=== PATIENT | male | born 1965 | race Hispanic/Latino ===

== ENCOUNTER 2019-02-13 08:50 | Emergency (ER) | payer OTHER ==
[~2019-02-13] VITALS: Ht 157.5 cm; Wt 74.8 kg
--- OUTSIDE RECORDS SUMMARY | 2019-02-13 08:54 | XMS REPORT | Summary of Care ---
Author Author [facility] Organization [facility] Address Unknown Phone Unavailable Encounter YUDITH Garrido(MARLO) [id number] Date(s): 09/17/16 - 09/17/16 [facility] [address] [place] [address]- Discharge Disposition: Home or Self Care Attending Physician: Ermias Charles MD Referring Physician: Ermias Charles MD Vital Signs 1 2 3 Most recent to oldest [Reference Range]: 160.02 cm (09/01/16 4:53 PM) Height 97.5 DegF (09/01/16 4:58 PM) Temperature Oral [96.4-99.1 DegF] 103/81 mmHg (09/17/16 2:15 PM) 104/58 mmHg (09/17/16 2:00 PM) 106/67 mmHg (09/17/16 1:45 PM) Blood Pressure [90-140/60-90 mmHg] 8 BRMIN *LOW* (09/17/16 2:00 PM) 12 BRMIN *LOW* (09/17/16 1:45 PM) 10 BRMIN *LOW* (09/17/16 1:30 PM) Respiratory Rate [14-20 BRMIN] 58 bpm *LOW* (09/01/16 4:58 PM) Peripheral Pulse Rate [60-100 bpm] 70.909 kg (09/01/16 4:53 PM) Weight 27.69 m2 (09/01/16 4:53 PM) Body Mass Index Problem List Condition Effective Dates Status Health Status Informant Acinetobacter(Confir Active med)1 BPH (benign Active prostatic hyperplasia)(Confirm ed) 1Problem added by Discern Expert. Allergies, Adverse Reactions, Alerts Substance Reaction Severity Status NKDA Active Medications acetaminophen (ANES) Route: IV, Drug form: INJ, ONCE, Stop date: 09/17/16 13:19:00 CDT Start Date: 09/17/16 Stop Date: 09/17/16 Status: Completed ciprofloxacin (ANES) Route: IV, Drug form: INJ, ONCE, Stop date: 09/17/16 12:41:00 CDT Start Date: 09/17/16 Stop Date: 09/17/16 Status: Completed fentaNYL (ANES) Route: IV, Drug form: INJ, ONCE, Stop date: 09/17/16 12:41:00 CDT Start Date: 09/17/16 Stop Date: 09/17/16 Status: Completed furosemide (ANES) Route: IV, Drug form: INJ, ONCE, Stop date: 09/17/16 13:19:00 CDT Start Date: 09/17/16 Stop Date: 09/17/16 Status: Completed Lactated Ringers Injection IV 1000 mL 1,000 mL, Rate: 25 ml/hr, Infuse over: 40 hr, Route: IV, Dosing Weight 70.909 kg , Total Volume: 1,000, Start date: 09/17/16 11:43:00 CDT, Duration: 30 day, Stop date: 10/17/16 11:42:00 PROGRAM MANAGER SLP Start Date: 09/17/16 Stop Date: 09/17/16 Status: Discontinued lidocaine (ANES) Route: IV, Drug form: INJ, ONCE, Stop date: 09/17/16 12:41:00 CDT Start Date: 09/17/16 Stop Date: 09/17/16 Status: Completed LR 1000 mL INJ (ANES) Route: IV, Total Volume: 1,000, Start date: 09/17/16 12:08:00 CDT, Stop date: 13:08:00 CDT Start Date: 09/17/16 Stop Date: 09/17/16 Status: Completed midazolam (ANES) Route: IV, Drug form: SOLN, ONCE, Stop date: 09/17/16 12:41:00 CDT Start Date: 09/17/16 Stop Date: 09/17/16 Status: Completed ondansetron (ANES) Route: IV, Drug form: INJ, ONCE, Stop date: 09/17/16 12:46:00 CDT Start Date: 09/17/16 Stop Date: 09/17/16 Status: Completed oxybutynin 5 mg oral tablet 5 mg=1 tab, PO, TID, PRN Bladder Spasm, # 30 tab, 0 Refill(s) Start Date: 09/17/16 Status: Ordered propofol (ANES) Route: IV, Drug form: INJ, ONCE, Stop date: 09/17/16 12:41:00 CDT Start Date: 09/17/16 Stop Date: 09/17/16 Status: Completed Tylenol with Codeine #3 oral tablet 1 tab, PO, Q6H, PRN Pain, X 7 day, # 28 tab, 0 Refill(s) Start Date: 09/17/16 Stop Date: 09/24/16 Status: Ordered Results ELECTROLYTES Most recent to 1 oldest [Reference Range]: Sodium Lvl [135-145 137 mEq/L mEq/L] (09/01/16 5:03 PM) Potassium Lvl 4.2 mEq/L [3.5-5.1 mEq/L] (09/01/16 5:03 PM) Chloride Lvl [95-109 102 mEq/L mEq/L] (09/01/16 5:03 PM) CO2 [24-32 mEq/L] 32 mEq/L (09/01/16 5:03 PM) AGAP [10.0-20.0 7.2 mEq/L mEq/L] *LOW* (09/01/16 5:03 PM) CHEM PANEL Most recent to 1 oldest [Reference Range]: Creatinine Lvl 0.98 mg/dL [0.50-1.40 mg/dL] (09/01/16 5:03 PM) eGFR 90 mL/min/1.73m2 1 *NA* (09/01/16 5:03 PM) BUN [7-22 mg/dL] 12 mg/dL (09/01/16 5:03 PM) Glucose Lvl [70-99 86 mg/dL mg/dL] (09/01/16 5:03 PM) Calcium Lvl 8.7 mg/dL [8.5-10.5 mg/dL] (09/01/16 5:03 PM) 1Result Comment: The eGFR is calculated using the CKD-EPI formula. In most young, healthy individuals the eGFR will be >90 mL/min/1.73m2. The eGFR declines with age. An eGFR of 60-89 may be normal in some populations, particularly the elderly, for whom the CKD-EPI formula has not been extensively validated. Use of the eGFR is not recommended in the following populations: Individuals with unstable creatinine concentrations, including patients and those with serious co-morbid conditions. Patients with extremes in muscle mass or diet. The data above are obtained from the National Kidney Disease Education Program ( NKDEP) which additionally recommends that when the eGFR is used in patients with extremes of body mass index for purposes of drug dosing, the eGFR should be mul tiplied by the estimated BMI. URINE AND STOOL Most recent to 1 oldest [Reference Range]: UA Turbidity [Clear] Clear (09/01/16 5:01 PM) UA Color Ltyellow *NA* (09/01/16 5:01 PM) UA pH [5.0-8.0] 7.0 (09/01/16 5:01 PM) UA Spec Grav 1.006 [<=1.030] (09/01/16 5:01 PM) UA Glucose [Negative Negative mg/dL mg/dL] *NA* (09/01/16 5:01 PM) UA Blood [Negative] Large *ABN* (09/01/16 5:01 PM) UA Ketones [Negative Negative mg/dL mg/dL] *NA* (09/01/16 5:01 PM) UA Protein [Negative Negative mg/dL mg/dL] (09/01/16 5:01 PM) UA Urobilinogen <=1.0 mg/dL [0.1-1.0 mg/dL] *NA* (09/01/16 5:01 PM) UA Bili [Negative] Negative *NA* (09/01/16 5:01 PM) UA Leuk Est Moderate [Negative] *ABN* (09/01/16 5:01 PM) UA Nitrite Negative [Negative] (09/01/16 5:01 PM) UA WBC [0-5 /HPF] 5 /HPF (09/01/16 5:01 PM) UA RBC [0-2 /HPF] 58 /HPF *HI* (09/01/16 5:01 PM) UA Bacteria [None Occasional /HPF Seen /HPF] *NA* (09/01/16 5:01 PM) UA Sq Epi [Few /LPF] Occasional /LPF *NA* (09/01/16 5:01 PM) UA Mucus [None Seen Few /LPF /LPF] *NA* (09/01/16 5:01 PM) HEMATOLOGY Most recent to 1 oldest [Reference Range]: WBC [3.7-10.4 K/CMM] 5.9 K/CMM (09/01/16 5:03 PM) RBC [4.70-6.10 5.40 M/CMM M/CMM] (09/01/16 5:03 PM) Hgb [14.0-18.0 g/dL] 15.4 g/dL (09/01/16 5:03 PM) Hct [42.0-54.0 %] 46.2 % (09/01/16 5:03 PM) MCV [80.0-94.0 fL] 85.6 fL (09/01/16 5:03 PM) MCH [27.0-31.0 pg] 28.5 pg (09/01/16 5:03 PM) MCHC [32.0-36.0 33.3 g/dL g/dL] (09/01/16 5:03 PM) RDW [11.5-14.5 %] 13.6 % (09/01/16 5:03 PM) Platelet [133-450 199 K/CMM K/CMM] (09/01/16 5:03 PM) MPV [7.4-10.4 fL] 7.4 fL (09/01/16 5:03 PM) Segs [45.0-75.0 %] 64.2 % (09/01/16 5:03 PM) Lymphocytes 24.1 % [20.0-40.0 %] (09/01/16 5:03 PM) Monocytes [2.0-12.0 7.7 % %] (09/01/16 5:03 PM) Eosinophils [0.0-4.0 3.1 % %] (09/01/16 5:03 PM) Basophils [0.0-1.0 0.9 % %] (09/01/16 5:03 PM) Segs-Bands # 3.8 K/CMM [1.5-8.1 K/CMM] (09/01/16 5:03 PM) Lymphocytes # 1.4 K/CMM [1.0-5.5 K/CMM] (09/01/16 5:03 PM) Monocytes # [0.0-0.8 0.5 K/CMM K/CMM] (09/01/16 5:03 PM) Eosinophils # 0.2 K/CMM [0.0-0.5 K/CMM] (09/01/16 5:03 PM) Basophils # [0.0-0.2 0.1 K/CMM K/CMM] (09/01/16 5:03 PM) PT [12.0-14.7 12.0 seconds seconds] (09/01/16 5:03 PM) INR [0.85-1.17] 0.87 (09/01/16 5:03 PM) PTT [22.9-35.8 29.3 seconds seconds] (09/01/16 5:03 PM) Immunizations No data available for this section Procedures Procedure Date Related Diagnosis Body Site TURP - Transurethral resection of prostate Social History Social History Type Response Substance Abuse Use: None. Alcohol Never, Previous treatment: None. Smoking Status Never smoker; Exposure to Tobacco Smoke None; Cigarette Smoking Last 365 Days No; Reg Smoking Cessation Counseling No Assessment and Plan No data available for this section
--- OUTSIDE RECORDS SUMMARY | 2019-02-13 08:54 | XMS REPORT | Summary of Care ---
Author Author NIMO HUGHES M.D. Organization Unknown Address Unknown Phone Unavailable Care Team Providers Care Regional Coordinator Name Role Phone NIMO HUGHES M.D. Unavailable Unavailable KIM LIZAMA MD Unavailable Unavailable BECKY NIEVES MD Unavailable Unavailable Unavailable Unavailable Functional Status Name Dates Details Functional status health issues are not documented Status: Name Dates Details Cognitive status health issues are not documented Status: Problems Name Dates Details Elevated PSA (790.93, R97.20) Status: Active Urinary retention (788.20, R33.9) Status: Active Chest pain (786.50, R07.9) Status: Active Preoperative clearance (V72.84, Z01.818) Status: Active Chest discomfort (786.59, R07.89) Status: Active Medications Name Dates Details Omeprazole 20 MG Oral Capsule Delayed Release TAKE 1 CAPSULE DAILY NIMO HUGHES M.D. * Start : 04-Dec-2018 Active Allergies and Adverse Reactions Name Dates Details LevoFLOXacin TABS (Allergy) Status: Active Penicillins (Allergy) Status: Active Past Medical History Name Dates Details Elevated PSA (790.93, R97.20) Status: Active Urinary retention (788.20, R33.9) Status: Active History of History of transurethral resection of prostate (V15.29, Z98.890) Status: Resolved Procedures Procedure Dates Details History of Back Surgery Completed History of Transurethral Resection Of Prostate (TURP) Completed Immunization Name Dates Details Immunizations not documented Family History Name Dates Details Family history of cardiac disorder (V17.49, Z82.49) Comments: Family History Status: Active Family history of hypertension (V17.49, Z82.49) Comments: Family History Status: Active Name Dates Details Family history of cardiac arrest (V17.49, Z82.49) Status: Active Name Dates Details Family history of malignant neoplasm of prostate (V16.42, Z80.42) Status: Active Name Dates Details Family history of CABG Status: Active Social History Name Dates Details - Status: Name Dates Details Former smoker Vital Signs Date Test Result Details [id number] BP Systolic 120 mm[Hg] Status: Comments: Location: LUE; Position: Sitting BP Diastolic 80 mm[Hg] Status: Comments: Location: LUE; Position: Sitting Height 62 in Status: Weight 170 lb Status: Body Mass Index Calculated 31.09 kg/m2 Status: Body Surface Area Calculated 1.78 m2 Status: Heart Rate 63 /min Status: Comments: Location: L Radial; Quality: Normal Results Date Description Value Details Results not documented Plan of Care Name Dates Details Planned Observations Planned Goals not documented Planned Encounters Appointment; NIMO HUGHES M.D. On: 18-Dec-2018 15:10 Appointment; TIMOTEO AMIN On: 18-Dec-2018 15:15 Interventions Provided Plan* CHEST PAIN * - INtermittent chest pain with exertion, will get treadmill stress test for evaluation * - get TTE wit Doppler for LVEF and WMA * - Labs for risk stratification * ELEVATED PSA * - Recently found to have elevated PSA and patient reports that MRI showed possible malignancy. He is asking for a second opinion, will refer to urology ZEINA * RTC with results Discussion/Summary* Clinical cardiac findings reviewed and discussed * EKG reviewed and discussed Instructions Name Dates Details Instructions not documented Encounters Appointment; NIMO HUGHES M.D. Encounter Diagnosis: Problem not documented On: 04-Dec-2018 15:00
--- OUTSIDE RECORDS SUMMARY | 2019-02-13 08:54 | XMS REPORT | Clinical Summary ---
Author Author [facility] Organization [facility] Address Unknown Phone Unavailable Care Team Providers Care Medical Affairs Leader Name Role Phone Asked, No Pcp PCP Unavailable Allergies No Known Allergies Medications End Date Status Medication Sig Dispensed Refills Start Date Active ergocalciferol (VITAMIN TK 1 C PO 1 0 D2) 50,000 unit capsule TIME A WK 9 Active omeprazole (PriLOSEC) 20 TK ONE C PO 0 MG capsule QAM 8 Active sulfamethoxazole-trimetho TK 1 T PO 0 prim (BACTRIM DS) 800-160 BID FOR 7 8 mg per tablet DAYS Active Problems No known active problems Encounters Care Team Description Date Type Specialty Alexis Malave MD Elevated PSA (Primary Dx) 01/15/2019 Office Visit Urology after 02/12/2018 Social History Date Tobacco Use Types Packs/Day Years Used Never Assessed Sex Assigned at Date Recorded Not on file Industry Job Start Date Occupation Not on file Not on file Not on file Travel End Travel History Travel Start No recent travel history available. Last Filed Vital Signs Time Taken Vital Sign Reading 01/15/2019 2:58 PM [employer] Blood Pressure 123/78 01/15/2019 2:58 PM [employer] Pulse 69 - Temperature - 01/15/2019 2:58 PM [employer] Respiratory Rate 16 - Oxygen Saturation - - Inhaled Oxygen - Concentration 01/15/2019 2:58 PM [employer] Weight 74.8 kg (165 lb) 01/15/2019 2:58 PM [employer] Height 157.5 cm (5' 2") 01/15/2019 2:58 PM [employer] Body Mass Index 30.18 Plan of Treatment Care Team Description Date Type Specialty Alexis Malave MD [address] [place] [address] 02/19/2019 Ancillary Urology Procedure Health Maintenance Due Date Last Done Comments COLON CANCER SCREENING 02/16/2016 SHINGLES VACCINES (#1) 02/16/2016 INFLUENZA VACCINE 06/21/2018 Results Not on fileafter 02/12/2018 Insurance Payer Benefit Subscriber ID Type Phone Address Plan / Group BCBS BCBS xxxxxxxxxxxx PPO CHOICE PPO/JUNE RAMIREZ PPO Advance Directives Patient has advance care planning documents on file. For more information, sridhar vila contact: Delgado Coates [address] [place] [address]
--- OUTSIDE RECORDS SUMMARY | 2019-02-13 08:54 | XMS REPORT ---
Author Author Jaki Chow Organization [employer] Address Unknown Phone Unavailable Care Team Providers Care City Solicitor Name Role Phone Jaki Chow Unavailable Allergies, Adverse Reactions, Alerts Substance Reaction Event Type N.K.D.A. Info Not Available Non Drug Allergy Problems Problem Type Condition Code Onset Dates Condition Status Assessment Concern about STD in male without diagnosis Z71.1 Active Assessment Annual physical exam Z00.00 Active Assessment Colon cancer screening Z12.11 Active Problem Obesity (BMI 30-39.9) E66.9 Active Problem Other chest pain R07.89 Active Problem BMI 30.0-30.9,adult Z68.30 Active Problem Elevated PSA R97.20 Active Problem Stress F43.9 Active Problem Gastroesophageal reflux disease without esophagitis K21.9 Active Assessment Elevated PSA R97.20 Active Assessment Gastroesophageal reflux disease without esophagitis K21.9 Active Assessment Obesity (BMI 30-39.9) E66.9 Active Assessment Stress F43.9 Active Assessment BMI 30.0-30.9,adult Z68.30 Active Assessment Other chest pain R07.89 Active Medications No Known Medications Vital Signs Date/Time: Nov 24, 2018 BMI 30.93 Index Weight 174.6 lbs Height 63 in Temperature 98.1 F Cardiac Monitoring Heart Rate 60 /min Blood Pressure Diastolic 76 mm Hg Blood Pressure Systolic 123 mm Hg Results No Known Results Summary Purpose [employer] Submission
--- OUTSIDE RECORDS SUMMARY | 2019-02-13 08:54 | XMS REPORT | Summary of Care ---
Author Author [facility] Organization [facility] Address Unknown Phone Unavailable Encounter YUDITH Garrido(MARLO) [id number] Date(s): 07/27/16 - 07/27/16 [facility] [address] [place] [address]- Discharge Diagnosis: Urinary retention Discharge Disposition: Home or Self Care Attending Physician: Matt Serna DO Vital Signs Most recent to 1 2 oldest [Reference Range]: Height 160.02 cm (07/27/16 3:57 PM) Temperature Oral 98.4 DegF 98.3 DegF [96.4-99.1 DegF] (07/27/16 5:50 PM) (07/27/16 3:57 PM) Blood Pressure 134/83 mmHg 142/89 mmHg [90-140/60-90 mmHg] (07/27/16 5:50 PM) *HI* (07/27/16 3:57 PM) Respiratory Rate 18 BRMIN 17 BRMIN [14-20 BRMIN] (07/27/16 5:50 PM) (07/27/16 3:57 PM) Peripheral Pulse 64 bpm 87 bpm Rate [60-100 bpm] (07/27/16 5:50 PM) (07/27/16 3:57 PM) Weight 68.182 kg (07/27/16 3:57 PM) Body Mass Index 26.63 m2 (07/27/16 3:57 PM) Problem List No data available for this section Allergies, Adverse Reactions, Alerts Substance Reaction Severity Status NKDA Active Medications No data available for this section Results ELECTROLYTES Most recent to 1 oldest [Reference Range]: Sodium Lvl [135-145 138 mEq/L mEq/L] (07/27/16 4:41 PM) Potassium Lvl 4.1 mEq/L [3.5-5.1 mEq/L] (07/27/16 4:41 PM) Chloride Lvl [95-109 104 mEq/L mEq/L] (07/27/16 4:41 PM) CO2 [24-32 mEq/L] 27 mEq/L (07/27/16 4:41 PM) AGAP [10.0-20.0 11.1 mEq/L mEq/L] (07/27/16 4:41 PM) CHEM PANEL Most recent to 1 oldest [Reference Range]: Creatinine Lvl 0.92 mg/dL [0.50-1.40 mg/dL] (07/27/16 4:41 PM) eGFR 97 mL/min/1.73m2 1 *NA* (07/27/16 4:41 PM) BUN [7-22 mg/dL] 12 mg/dL (07/27/16 4:41 PM) B/C Ratio [6-25] 13 (07/27/16 4:41 PM) Glucose Lvl [70-99 118 mg/dL mg/dL] *HI* (07/27/16 4:41 PM) Total Protein 7.8 g/dL [6.4-8.4 g/dL] (07/27/16 4:41 PM) Albumin Lvl [3.5-5.0 4.0 g/dL g/dL] (07/27/16 4:41 PM) Globulin [2.7-4.2 3.8 g/dL g/dL] (07/27/16 4:41 PM) A/G Ratio [0.7-1.6] 1.1 (07/27/16 4:41 PM) Calcium Lvl 8.6 mg/dL [8.5-10.5 mg/dL] (07/27/16 4:41 PM) ALT [0-65 unit/L] 23 unit/L (07/27/16 4:41 PM) AST [0-37 unit/L] 14 unit/L (07/27/16 4:41 PM) Alk Phos [39-136 58 unit/L unit/L] (07/27/16 4:41 PM) Bili Total [0.2-1.3 0.7 mg/dL mg/dL] (07/27/16 4:41 PM) 1Result Comment: The eGFR is calculated [...] oldest [Reference Range]: UA Turbidity [Clear] Clear (07/27/16 4:41 PM) UA Color Ltyellow *NA* (07/27/16 4:41 PM) UA pH [5.0-8.0] 6.0 (07/27/16 4:41 PM) UA Spec Grav 1.006 [<=1.030] (07/27/16 4:41 PM) UA Glucose [Negative Negative mg/dL mg/dL] *NA* (07/27/16 4:41 PM) UA Blood [Negative] Small *ABN* (07/27/16 4:41 PM) UA Ketones [Negative Negative mg/dL mg/dL] *NA* (07/27/16 4:41 PM) UA Protein [Negative Negative mg/dL mg/dL] (07/27/16 4:41 PM) UA Urobilinogen <=1.0 mg/dL [0.1-1.0 mg/dL] *NA* (07/27/16 4:41 PM) UA Bili [Negative] Negative *NA* (07/27/16 4:41 PM) UA Leuk Est Negative [Negative] (07/27/16 4:41 PM) UA Nitrite Negative [Negative] (07/27/16 4:41 PM) UA WBC [0-5 /HPF] <1 /HPF (07/27/16 4:41 PM) UA RBC [0-2 /HPF] 5 /HPF *HI* (07/27/16 4:41 PM) UA Sq Epi [Few /LPF] Occasional /LPF *NA* (07/27/16 4:41 PM) Immunizations No data available for this section Procedures No data available for this section Social History Social History Type Response Smoking Status Never smoker; Exposure to Tobacco Smoke None; Cigarette Smoking Last 365 Days No; Reg Smoking Cessation Counseling No Assessment and Plan No data available for this section
--- OUTSIDE RECORDS SUMMARY | 2019-02-13 08:54 | XMS REPORT ---
Author Author Jaki Chow Organization [employer] Address Unknown Phone Unavailable Care Team Providers Care Prepress Technician Name Role Phone Jaki Chow CP Unavailable Allergies No Known Allergies Problems Problem Type Condition Code Onset Dates Condition Status Problem Obesity (BMI 30-39.9) E66.9 Active Problem Other chest pain R07.89 Active Problem BMI 30.0-30.9,adult Z68.30 Active Problem Elevated PSA R97.20 Active Problem Stress F43.9 Active Problem Gastroesophageal reflux disease without esophagitis K21.9 Active Medications Medication Code System Code Instructions Start Date End Date Status Dosage Ergocalciferol [facility] [id number] UNIT Orally once a week Nov 27, 2018 February 25, 2019 Active 1 capsule Results No Known Results Summary Purpose [employer] Submission
--- OUTSIDE RECORDS SUMMARY | 2019-02-13 08:54 | XMS REPORT | Continuity of Care Document ---
Author Author [facility] Interface Address Unknown Phone Unavailable Problems Problem Status Onset Date Classification Date Reported Comments Source UNK Active 08/23/2016 [facility] Discharge Diagnosis: Urinary retention 07/27/2016 07/30/2016 [facility] CAN NOT URITATE Active 07/27/2016 [facility] Acinetobacter<sup>1</sup> Active Problem 09/20/2016 Problem added by Discern Expert. [facility] BPH (<span ID="[id number]">Confirmed</span>) Active Problem 09/20/2016 [facility] Obesity Active Problem 11/28/2018 [facility] Primary Other chest pain Active Problem 11/28/2018 [facility] Primary BMI 30.0-30.9,adult Active Problem 11/28/2018 [facility] Primary Elevated PSA Active Problem 11/28/2018 [facility] Primary Stress Active Problem 11/28/2018 [facility] Primary Gastroesophageal reflux disease without esophagitis Active Problem 11/28/2018 [facility] Primary Concern about STD in male without diagnosis Active Diagnosis 11/25/2018 [facility] Primary Medications Medication Details Route Status Patient Instructions Ordering Provider Order Date Source Ergocalciferol 1 capsule Orally Active 72669 UNIT Orally once a week Geraldo 11/27/2018 [facility] Primary Cyanocobalamin 1 tablet Orally Active 1000 MCG Orally Once a day Geraldo 11/27/2018 [facility] Primary furosemide (ANES) Route: IV, Drug form: INJ, ONCE, Stop date: 09/17/16 13:19:00 CDT Inactive 09/17/2016 [facility] acetaminophen (ANES) Route: IV, Drug form: INJ, ONCE, Stop date: 09/17/16 13:19:00 CDT Inactive 09/17/2016 [facility] oxybutynin 5 mg oral tablet 5 mg=1 tab, PO, TID, PRN Bladder Spasm, # 30 tab, 0 Refill(s) Active 09/17/2016 [facility] Acetaminophen 300 MG / Codeine Phosphate 30 MG Oral Tablet [Tylenol with Codeine #3] 1 tab, PO, Q6H, PRN Pain, X 7 day, # 28 tab, 0 Refill(s) Active 09/17/2016 [facility] ondansetron (ANES) Route: IV, Drug form: INJ, ONCE, Stop date: 09/17/16 12:46:00 CDT Inactive 09/17/2016 [facility] propofol (ANES) Route: IV, Drug form: INJ, ONCE, Stop date: 09/17/16 12:41:00 CDT Inactive 09/17/2016 [facility] fentaNYL (ANES) Route: IV, Drug form: INJ, ONCE, Stop date: 09/17/16 12:41:00 CDT Inactive 09/17/2016 [facility] midazolam (ANES) Route: IV, Drug form: SOLN, ONCE, Stop date: 09/17/16 12:41:00 CDT Inactive 09/17/2016 [facility] lidocaine (ANES) Route: IV, Drug form: INJ, ONCE, Stop date: 09/17/16 12:41:00 CDT Inactive 09/17/2016 [facility] ciprofloxacin (ANES) Route: IV, Drug form: INJ, ONCE, Stop date: 09/17/16 12:41:00 CDT Inactive 09/17/2016 [facility] LR 1000 mL INJ (ANES) Route: IV, Total Volume: 1,000, Start date: 09/17/16 12:08:00 CDT, Stop date: 09/17/16 13:08:00 CDT Inactive 09/17/2016 [facility] Calcium Chloride 0.0014 MEQ/ML / Potassium Chloride 0.004 MEQ/ML / Sodium Chloride 0.103 MEQ/ML / Sodium Lactate 0.028 MEQ/ML Injectable Solution 1,000 mL, Rate: 25 ml/hr, Infuse over: 40 hr, Route: IV, Dosing Weight 70.909 kg, Total Volume: 1,000, Start date: 09/17/16 11:43:00 CDT, Duration: 30 day, Stop date: 10/17/16 11:42:00 [employer] Inactive 09/17/2016 [facility] Allergies, Adverse Reactions, Alerts Substance Category Reaction Severity Reaction type Status Date Reported Comments Source N.K.D.A. Adverse Reaction Info Not Available Adverse Reaction Active 11/24/2018 [facility] Primary Immunizations Immunization Date Given Site Status Last Updated Comments Source Results Order Name Results Value Reference Range Date Interpretation Comments Source ELECTROLYTES AGAP 7.2 meq/L 10.0 - 20.0 09/01/2016 [facility] ELECTROLYTES eGFR 90 mL/min/1.73m2 09/01/2016 Result Comment: The eGFR is calculated using the [...] from the National Kidney Disease Education Program (NKDEP) which additionally recommends that when the eGFR is used in patients with extremes of body mass index for purposes of drug dosing, the eGFR should be multiplied by the estimated BMI. [facility] ELECTROLYTES Chloride Lvl 102 meq/L 95 - 109 09/01/2016 [facility] ELECTROLYTES Potassium Lvl 4.2 meq/L 3.5 - 5.1 09/01/2016 [facility] ELECTROLYTES Creatinine Lvl 0.98 mg/dL 0.50 - 1.40 09/01/2016 [facility] ELECTROLYTES Sodium Lvl 137 meq/L 135 - 145 09/01/2016 [facility] ELECTROLYTES CO2 32 meq/L 24 - 32 09/01/2016 [facility] ELECTROLYTES Calcium Lvl 8.7 mg/dL 8.5 - 10.5 09/01/2016 [facility] ELECTROLYTES BUN 12 mg/dL 7 - 22 09/01/2016 [facility] ELECTROLYTES Glucose Lvl 86 mg/dL 70 - 99 09/01/2016 [facility] PTT 29.3 s 22.9 - 35.8 09/01/2016 [facility] PT 12.0 s 12.0 - 14.7 09/01/2016 [facility] HEMATOLOGY INR 0.87 0.85 - 1.17 09/01/2016 [facility] HEMATOLOGY MCV 85.6 fL 80.0 - 94.0 09/01/2016 [facility] Hct 46.2 % 42.0 - 54.0 09/01/2016 [facility] Hgb 15.4 g/dL 14.0 - 18.0 09/01/2016 [facility] MPV 7.4 fL 7.4 - 10.4 09/01/2016 [facility] HEMATOLOGY Platelet 199 K/CMM 133 - 450 09/01/2016 [facility] HEMATOLOGY MCH 28.5 pg 27.0 - 31.0 09/01/2016 [facility] MCHC 33.3 g/dL 32.0 - 36.0 09/01/2016 [facility] HEMATOLOGY RDW 13.6 % 11.5 - 14.5 09/01/2016 [facility] HEMATOLOGY RBC 5.40 M/CMM 4.70 - 6.10 09/01/2016 [facility] HEMATOLOGY WBC 5.9 K/CMM 3.7 - 10.4 09/01/2016 [facility] HEMATOLOGY Eosinophils # 0.2 K/CMM 0.0 - 0.5 09/01/2016 [facility] HEMATOLOGY Lymphocytes # 1.4 K/CMM 1.0 - 5.5 09/01/2016 [facility] HEMATOLOGY Monocytes # 0.5 K/CMM 0.0 - 0.8 09/01/2016 [facility] HEMATOLOGY Basophils # 0.1 K/CMM 0.0 - 0.2 09/01/2016 [facility] HEMATOLOGY Basophils 0.9 % 0.0 - 1.0 09/01/2016 [facility] HEMATOLOGY Segs-Bands # 3.8 K/CMM 1.5 - 8.1 09/01/2016 [facility] HEMATOLOGY Segs 64.2 % 45.0 - 75.0 09/01/2016 [facility] HEMATOLOGY Eosinophils 3.1 % 0.0 - 4.0 09/01/2016 [facility] HEMATOLOGY Monocytes 7.7 % 2.0 - 12.0 09/01/2016 [facility] Lymphocytes 24.1 % 20.0 - 40.0 09/01/2016 [facility] URINE AND STOOL UA Urobilinogen <=1.0 mg/dL 0.1 - 1.0 09/01/2016 [facility] URINE AND STOOL UA pH 7.0 5.0 - 8.0 09/01/2016 [facility] URINE AND STOOL UA Spec Grav 1.006 <=1.030 09/01/2016 [facility] URINE AND STOOL UA Protein Negative mg/dL Negative mg/dL 09/01/2016 [facility] URINE AND STOOL UA Color Ltyellow 09/01/2016 [facility] URINE AND STOOL UA Blood Large *ABN* (09/01/16 5:01 PM) Negative 09/01/2016 [facility] URINE AND STOOL UA Bacteria Occasional /HPF None Seen /HPF 09/01/2016 [facility] URINE AND STOOL UA RBC 58 /HPF 0 - 2 09/01/2016 [facility] URINE AND STOOL UA Sq Epi Occasional /LPF Few /LPF 09/01/2016 [facility] URINE AND STOOL UA Turbidity Clear (09/01/16 5:01 PM) Clear 09/01/2016 [facility] URINE AND STOOL UA Nitrite Negative (09/01/16 5:01 PM) Negative 09/01/2016 [facility] URINE AND STOOL UA Leuk Est Moderate *ABN* (09/01/16 5:01 PM) Negative 09/01/2016 [facility] URINE AND STOOL UA Bili Negative *NA* (09/01/16 5:01 PM) Negative 09/01/2016 [facility] URINE AND STOOL UA WBC 5 /HPF 0 - 5 09/01/2016 [facility] URINE AND STOOL UA Ketones Negative mg/dL Negative mg/dL 09/01/2016 [facility] URINE AND STOOL UA Glucose Negative mg/dL Negative mg/dL 09/01/2016 [facility] URINE AND STOOL UA Mucus Few /LPF None Seen /LPF 09/01/2016 [facility] CHEM PANEL Globulin 3.8 g/dL 2.7 - 4.2 07/27/2016 [facility] CHEM PANEL B/C Ratio 13 6 - 25 07/27/2016 [facility] CHEM PANEL A/G Ratio 1.1 0.7 - 1.6 07/27/2016 [facility] CHEM PANEL AGAP 11.1 meq/L 10.0 - 20.0 07/27/2016 [facility] CHEM PANEL Bili Total 0.7 mg/dL 0.2 - 1.3 07/27/2016 [facility] CHEM PANEL Total Protein 7.8 g/dL 6.4 - 8.4 07/27/2016 [facility] CHEM PANEL Chloride Lvl 104 meq/L 95 - 109 07/27/2016 [facility] CHEM PANEL Potassium Lvl 4.1 meq/L 3.5 - 5.1 07/27/2016 [facility] CHEM PANEL Calcium Lvl 8.6 mg/dL 8.5 - 10.5 07/27/2016 [facility] CHEM PANEL CO2 27 meq/L 24 - 32 07/27/2016 [facility] CHEM PANEL Sodium Lvl 138 meq/L 135 - 145 07/27/2016 [facility] CHEM PANEL Glucose Lvl 118 mg/dL 70 - 99 07/27/2016 [facility] CHEM PANEL Creatinine Lvl 0.92 mg/dL 0.50 - 1.40 07/27/2016 [facility] CHEM PANEL BUN 12 mg/dL 7 - 22 07/27/2016 [facility] CHEM PANEL eGFR 97 mL/min/1.73m2 07/27/2016 Result Comment: The eGFR is calculated using the [...] from the National Kidney Disease Education Program (NKDEP) which additionally recommends that when the eGFR is used in patients with extremes of body mass index for purposes of drug dosing, the eGFR should be multiplied by the estimated BMI. [facility] CHEM PANEL AST 14 unit/L 0 - 37 07/27/2016 [facility] CHEM PANEL Alk Phos 58 unit/L 39 - 136 07/27/2016 [facility] CHEM PANEL Albumin Lvl 4.0 g/dL 3.5 - 5.0 07/27/2016 [facility] CHEM PANEL ALT 23 unit/L 0 - 65 07/27/2016 [facility] URINE AND STOOL UA Bili Negative *NA* (07/27/16 4:41 PM) Negative 07/27/2016 [facility] URINE AND STOOL UA WBC null 0 - 5 07/27/2016 [facility] URINE AND STOOL UA RBC 5 /HPF 0 - 2 07/27/2016 [facility] URINE AND STOOL UA Sq Epi Occasional /LPF Few /LPF 07/27/2016 [facility] URINE AND STOOL UA Protein Negative mg/dL Negative mg/dL 07/27/2016 [facility] URINE AND STOOL UA Nitrite Negative (07/27/16 4:41 PM) Negative 07/27/2016 [facility] URINE AND STOOL UA Blood Small *ABN* (07/27/16 4:41 PM) Negative 07/27/2016 [facility] URINE AND STOOL UA Spec Grav 1.006 <=1.030 07/27/2016 [facility] URINE AND STOOL UA pH 6.0 5.0 - 8.0 07/27/2016 [facility] URINE AND STOOL UA Glucose Negative mg/dL Negative mg/dL 07/27/2016 [facility] URINE AND STOOL UA Ketones Negative mg/dL Negative mg/dL 07/27/2016 [facility] URINE AND STOOL UA Turbidity Clear (07/27/16 4:41 PM) Clear 07/27/2016 [facility] URINE AND STOOL UA Leuk Est Negative (07/27/16 4:41 PM) Negative 07/27/2016 [facility] URINE AND STOOL UA Urobilinogen <=1.0 mg/dL 0.1 - 1.0 07/27/2016 [facility] URINE AND STOOL UA Color Ltyellow 07/27/2016 [facility] Vital Signs Vital Sign Value Date Comments Source Weight 174.6 11/24/2018 [facility] Primary Height 63 11/24/2018 [facility] Primary Temperature Oral (F) 98.1 F 11/24/2018 [facility] Primary Heart Rate 60 11/24/2018 [facility] Primary Diastolic (mm Hg) 76 11/24/2018 [facility] Primary Systolic (mm Hg) 123 11/24/2018 [facility] Primary Systolic (mm Hg) 103 09/17/2016 [facility] Diastolic (mm Hg) 81 09/17/2016 [facility] Respitory Rate 8 09/17/2016 [facility] Systolic (mm Hg) 104 09/17/2016 [facility] Diastolic (mm Hg) 58 09/17/2016 [facility] Respitory Rate 12 09/17/2016 [facility] Systolic (mm Hg) 106 09/17/2016 [facility] Diastolic (mm Hg) 67 09/17/2016 [facility] Respitory Rate 10 09/17/2016 [facility] Heart Rate 58 09/01/2016 [facility] Temperature Oral (F) 97.5 F 09/01/2016 [facility] BMI Calculated 27.69 09/01/2016 [facility] Weight 70.909 09/01/2016 [facility] Height 160.02 cm 09/01/2016 [facility] Systolic (mm Hg) 134 07/27/2016 [facility] Diastolic (mm Hg) 83 07/27/2016 [facility] Respitory Rate 18 07/27/2016 [facility] Temperature Oral (F) 98.4 F 07/27/2016 [facility] Heart Rate 64 07/27/2016 [facility] Temperature Oral (F) 98.3 F 07/27/2016 [facility] Weight 68.182 07/27/2016 [facility] Height 160.02 cm 07/27/2016 [facility] Respitory Rate 17 07/27/2016 [facility] Heart Rate 87 07/27/2016 [facility] BMI Calculated 26.63 07/27/2016 [facility] Systolic (mm Hg) 142 07/27/2016 [facility] Diastolic (mm Hg) 89 07/27/2016 [facility] Encounters Location Location Details Encounter Type Encounter Number Reason For Visit Attending Provider ADM Date DC Date Status Source [facility] Emergency [id number] Matt Paynemar 07/27/2016 07/27/2016 [facility] Day Surgery [id number] Ermias Michaelana 09/17/2016 09/17/2016 [facility] Outpatient [id number] CARLOTTA [place] 11/23/2018 Active [facility] Outpatient [id number] NURSE VISIT 11/23/2018 Active [facility] Outpatient [id number] [facility] [place] 12/04/2018 Active [facility] Procedures Procedure Code Date Perfomer Comments Source TURP - Transurethral resection of prostate [id number] [facility]
--- OUTSIDE RECORDS SUMMARY | 2019-02-13 08:54 | XMS REPORT ---
Author Author Jaki Chow Organization [employer] Address Unknown Phone Unavailable Care Team Providers Care Apricot Washer Name Role Phone Jaki Chow CP Unavailable [...] Instructions Start Date End Date Status Dosage Cyanocobalamin [facility] [id number] 1000 MCG Orally Once a day Nov 27, 2018 February 25, 2019 Active 1 tablet Results No Known Results Summary Purpose [employer] Submission
== END 2019-02-13 09:13 | disposition home or self-care (01) ==
LOC: FSED 08:50
DX: H92.02 Otalgia, left ear (principal)
CPT/HCPCS: 99282